=== PATIENT | female | born 1945 | race Caucasian/White ===

== ENCOUNTER 2023-02-24 11:08 | Emergency (ER) | payer MEDICARE, BC ==
[2023-02-24 11:42] LABS: BASOPHILS PERCENT AUTO 0.3 % (0.0-1.0); EOSINOPHILS PERCENT AUTO 0.1 % (0.0-6.0); HEMATOCRIT 33.1 % (37.0-47.0); HEMOGLOBIN 11.2 gm/dl (12.0-16.0); IMMATURE GRAN ABSOLUTE AUTO 0.02 K/mm3 (0.00-0.05); IMMATURE GRAN PERCENT AUTO 0.3 % (0.0-0.4); LYMPHOCYTES ABSOLUTE AUTO 0.9 K/mm3 (1.0-4.8); LYMPHOCYTES PERCENT AUTO 11.2 % (24.0-44.0); MEAN CORPUSCULAR HEMOGLOBIN 31.7 pg (28.0-32.0); MEAN CORPUSCULAR HGB CONC 33.8 g/dl (32.0-36.0); MEAN CORPUSCULAR VOLUME 93.8 fl (83.0-99.0); MEAN PLATELET VOLUME 9.9 fl (9.4-12.3); MONOCYTES ABSOLUTE AUTO 0.7 K/mm3 (0.0-0.8); MONOCYTES PERCENT AUTO 9.4 % (0.0-8.0); NEUTROPHILS ABSOLUTE AUTO 6.1 K/mm3 (1.8-7.7); NEUTROPHILS PERCENT AUTO 78.7 % (41.0-71.0); PLATELET COUNT,PLT 227 K/mm3 (150-400); RED BLOOD CELL COUNT 3.53 M/mm3 (4.10-5.30); WHITE BLOOD CELL COUNT,WBC 7.69 K/mm3 (3.9-11.3)
[2023-02-24 12:12] LABS: INR 3.1; PROTHROMBIN TIME 30.5 SECONDS (9.7-12.0)
[2023-02-24 12:15] LABS: D-DIMER QUANTITATIVE 0.83 mg/L (0.19-0.50)
[2023-02-24 12:18] LABS: A/G RATIO 0.7 (1-2); ALBUMIN 3.1 g/dl (3.4-5.0); ANION GAP 11.5 (5-15); BUN/CREATININE RATIO 12.7 (14-18); CALCIUM 9.2 mg/dL (8.5-10.1); CREATININE 1.1 mg/dL (0.55-1.02); EST CRCL DRUG DOSING (CG) 41.65 mL/min; POTASSIUM,K 3.5 mEq/L (3.5-5.1); PROTEIN TOTAL,TP 7.7 g/dl (6.4-8.2)
[2023-02-24 12:24] LABS: CORONAVIRUS COVID-19 NAA NEGATIVE (NEGATIVE); INFLUENZA A NAA NEGATIVE (NEGATIVE); RESPIRATORY SYNCYTIAL VIR NAA NEGATIVE (NEGATIVE)
[2023-02-24] MEDS ORDERED: Iopamidol 755 Mg/ML 100 ML Bottle IVPUSH ONE ×2 (12:30→12:43)
[2023-02-24] MEDS ORDERED: Sodium Chloride 0.9% 100 ML IV SCH ×2 (12:30→12:45)
[2023-02-24] MEDS ORDERED: Sodium Chloride 0.9% 10 ML Syringe FLUSH ONE (12:43)
[2023-02-24] MEDS: Nitroglycerin 0.4 MG Tab.SL SL PRN ×3 (14:13→14:38)
[2023-02-24] MEDS ORDERED: Alum Hydrox/Mag Hydrox/Simeth 30 ML, Lidocaine 2% 15 ML PO ONE ×2 (16:12)
[2023-02-24] MEDS ORDERED: FLU Vacc QS2022(65UP)/MF59C/PF 60 MCG/0.5 ML Syringe IM ONE (17:00)
[2023-02-24] MEDS ORDERED: Pantoprazole 40 MG Vial IVPUSH ONE (17:31)
[2023-02-24] MEDS ORDERED: FLU (Fluad Quad) 2023-24(65UP)/MF59C/PF 60 MCG/0.5 ML Syringe IM ONE (17:52)
[2023-02-24 18:37] VITALS: BP 118/61; PULSE 72
== END 2023-02-24 18:25 | disposition home or self-care (01) ==
LOC: JD.ED 11:08
DX: K21.9 Gastro-esophageal reflux disease without esophagitis (principal); I10 Essential (primary) hypertension; E78.00 Pure hypercholesterolemia, unspecified; Z86.73 Personal history of transient ischemic attack (TIA), and cerebral infarction without residual deficits; Z95.0 Presence of cardiac pacemaker; Z20.822 Contact with and (suspected) exposure to COVID-19; Z91.040 Latex allergy status; Z88.2 Allergy status to sulfonamides; Z88.8 Allergy status to other drugs, medicaments and biological substances; Z88.1 Allergy status to other antibiotic agents; Z88.5 Allergy status to narcotic agent; Z91.048 Other nonmedicinal substance allergy status
CPT/HCPCS: 0241U; 36415; 71045; 71275; 80053; 83735; 83880; 84484; 85025; 85379; 85610; 90694; 93005; 96374; 99285; A9270; C9113; J3490; Q9967

== ENCOUNTER 2023-04-10 08:29 | Day surgery (SDC) | payer MEDICARE, BC ==
[~2023-04-10 08:29] MED LIST: Sodium Chloride 0.9% 10 ML Syringe FLUSH PRN
[2023-04-10] MEDS: Lactated Ringers 1,000 ML IV SCH (08:35)
[2023-04-10] MEDS ORDERED: Sodium Chloride 0.9% 10 ML Syringe FLUSH SCH (09:00)
[2023-04-10] MEDS ORDERED: Bupivacaine 0.25% 10 ML SDV ONE (09:57)
[2023-04-10] MEDS ORDERED: ceFAZolin 2 GM Vial ONE ×2 (10:10→10:11)
[2023-04-10] MEDS ORDERED: Lidocaine 1% 4 ML ONE (10:11)
[2023-04-10] MEDS ORDERED: Propofol 200 MG/20 ML SDV ONE (10:11)
[2023-04-10] MEDS ORDERED: fentaNYL 100 MCG/2 ML SDV ONE (10:11)
[2023-04-10] MEDS ORDERED: HYDROmorphone 0.5 MG/0.5 ML Syringe IVPUSH PRN (11:24)
[2023-04-10] MEDS ORDERED: Ondansetron 4 MG/2 ML SDV IVPUSH PRN (11:24)
[2023-04-10] MEDS: fentaNYL 100 MCG/2 ML SDV IVPUSH PRN (12:06)
[2023-04-10] MEDS: traMADol 50 MG Tab PO PRN (12:20)
[2023-04-10 13:16] VITALS: PULSE 70
[2023-04-10 14:54] VITALS: BP 134/72
== END 2023-04-10 14:45 | disposition home or self-care (01) ==
LOC: JD.SDS 08:29
PROVIDERS: ATTEND Orthopaedic Surgery
DX: I10 Essential (primary) hypertension (principal)
CPT/HCPCS: 00400; 99100; A9270-GY; J0690; J2704; J3010; J3490; J7120

== ENCOUNTER 2024-08-21 10:46 | Inpatient (IN) | payer MEDICARE, BC ==
[2024-08-21] MEDS ORDERED: Naloxone 0.4 MG/ML SDV IVPUSH PRN (11:31)
[2024-08-21] MEDS: fentaNYL 100 MCG/2 ML SDV IVPUSH ONE (11:42)
[2024-08-21] MEDS: Sodium Chloride 0.9% 1,000 ML IV SCH (11:43)
[2024-08-21 12:21] LABS: BASOPHILS PERCENT AUTO 0.2 % (0.0-1.0); EOSINOPHILS PERCENT AUTO 0.2 % (0.0-6.0); HEMATOCRIT 38.3 % (37.0-47.0); HEMOGLOBIN 12.5 gm/dl (12.0-16.0); IMMATURE GRAN ABSOLUTE AUTO 0.02 K/mm3 (0.00-0.05); IMMATURE GRAN PERCENT AUTO 0.3 % (0.0-0.4); LYMPHOCYTES ABSOLUTE AUTO 0.6 K/mm3 (1.0-4.8); MEAN CORPUSCULAR HEMOGLOBIN 30.9 pg (28.0-32.0); MEAN CORPUSCULAR HGB CONC 32.6 g/dl (32.0-36.0); MEAN CORPUSCULAR VOLUME 94.8 fl (83.0-99.0); MEAN PLATELET VOLUME 10.2 fl (9.4-12.3); MONOCYTES ABSOLUTE AUTO 0.2 K/mm3 (0.0-0.8); MONOCYTES PERCENT AUTO 2.9 % (0.0-8.0); NEUTROPHILS ABSOLUTE AUTO 5.8 K/mm3 (1.8-7.7); NEUTROPHILS PERCENT AUTO 87.4 % (41.0-71.0); PLATELET COUNT,PLT 185 K/mm3 (150-400); RED BLOOD CELL COUNT 4.04 M/mm3 (4.10-5.30); WHITE BLOOD CELL COUNT,WBC 6.57 K/mm3 (3.9-11.3)
[2024-08-21 12:40] LABS: A/G RATIO 0.9 (1-2); ALBUMIN 3.5 g/dl (3.4-5.0); ANION GAP 11.3 (5-15); BILIRUBIN TOTAL 0.9 mg/dL (0.2-1.0); BUN/CREATININE RATIO 22.7 (14-18); CREATININE 1.1 mg/dL (0.55-1.02); EST CRCL DRUG DOSING (CG) 42.52 mL/min; POTASSIUM,K 4.3 mEq/L (3.5-5.1); PROTEIN TOTAL,TP 7.5 g/dl (6.4-8.2)
[2024-08-21 14:11] LABS: APPEARANCE,URINE CLEAR (Clear); BILIRUBIN,URINE NEGATIVE (Negative); COLOR,URINE YELLOW (Yellow); GLUCOSE,URINE NEGATIVE (Negative); KETONES,URINE NEGATIVE (Negative); LEUKOCYTE ESTERASE,URINE NEGATIVE (Negative); NITRITE,URINE NEGATIVE (Negative); OCCULT BLOOD,URINE NEGATIVE (Negative); PROTEIN,URINE NEGATIVE (Negative); UROBILINOGEN,URINE 0.2 (0.2-1.0)
[2024-08-21] MEDS ORDERED: oxyCODONE 5 MG Tab PO PRN (15:03)
[2024-08-21] MEDS ORDERED: Melatonin 3 MG Tab PO PRN ×2 (15:03→21:00)
[2024-08-21] MEDS ORDERED: Ondansetron 4 MG Tab.DIS PO PRN (15:03)
[2024-08-21] MEDS ORDERED: Acetaminophen 325 MG Tab PO PRN (15:03)
[2024-08-21] MEDS ORDERED: Ondansetron 4 MG/2 ML SDV IV PRN (15:03)
[2024-08-21 15:43] LABS: INR 1.76
[2024-08-21] MEDS ORDERED: Cyclobenzaprine 10 MG Tab PO PRN (15:44)
[2024-08-21] MEDS: Warfarin 2.5 MG Tab PO ONE (18:08)
[2024-08-21] MEDS: atorvaSTATin 20 MG Tab PO SCH (18:08)
[2024-08-21] MEDS: Morphine 2 MG/ML SYRINGE IVPUSH PRN (18:12)
[2024-08-21] MEDS: Gabapentin 100 MG Cap PO SCH (20:42)
[2024-08-21] MEDS: Acetaminophen 325 MG Tab PO SCH (20:42)
[2024-08-21] MEDS: Docusate Sodium 100 MG Cap PO PRN (20:45)
[2024-08-22 07:27] LABS: INR 1.97
[2024-08-22] MEDS: Spironolactone 25 MG Tab PO SCH (08:24)
[2024-08-22] MEDS: Aspirin 81 MG Tab.EC PO SCH (08:24)
[2024-08-22] MEDS: Sertraline 50 MG Tab PO SCH (08:24)
[2024-08-22] MEDS: Metoprolol Succinate 50 MG Tab.ER PO SCH (08:25)
[2024-08-22] MEDS: Lisinopril 20 MG Tab PO SCH (08:25)
[2024-08-22] MEDS: Furosemide 40 MG Tab PO SCH (08:25)
[2024-08-22] MEDS ORDERED: Aspirin 81 MG Tab.EC PO SCH (09:00)
[2024-08-22] MEDS ORDERED: CRANBERRY 400 MG PO SCH (09:00)
[2024-08-22] MEDS: Docusate Sodium 100 MG Cap PO SCH (11:52)
[2024-08-22] MEDS: Diclofenac Sodium 1% Gel 100 GM Tube TOP SCH (15:37)
[2024-08-22] MEDS: Warfarin 7.5 MG Tab PO SCH (17:15)
[2024-08-23 07:59] LABS: INR 1.9; PROTHROMBIN TIME 19.3 SECONDS (9.7-12.0)
[2024-08-23] MEDS: Warfarin 5 MG Tab PO SCH (18:49)
[2024-08-24 07:14] LABS: INR 2.03; PROTHROMBIN TIME 20.5 SECONDS (9.7-12.0)
[2024-08-24] MEDS: Warfarin 7.5 MG Tab PO SCH (17:43)
[2024-08-25 07:19] LABS: INR 2.18
[2024-08-25 17:20] VITALS: PULSE 70
[2024-08-25] MEDS: Warfarin 7.5 MG Tab PO SCH (17:34)
[2024-08-26 06:02] LABS: INR 2.21; PROTHROMBIN TIME 22.2 SECONDS (9.7-12.0)
[2024-08-26 10:35] VITALS: BP 139/85
[2024-08-26] MEDS ORDERED: Warfarin 7.5 MG Tab PO SCH (18:00)
== END 2024-08-26 10:43 | DRG 556 ==
LOC: JD.ED 10:46 → JD.MS 15:03
PROVIDERS: ADMIT Family Medicine; ATTEND Internal Medicine
DX: R26.2 Difficulty in walking, not elsewhere classified (principal); I13.0 Hypertensive heart and chronic kidney disease with heart failure and stage 1 through stage 4 chronic kidney disease, or unspecified chronic kidney disease; M25.552 Pain in left hip; H54.7 Unspecified visual loss; I48.91 Unspecified atrial fibrillation; E78.00 Pure hypercholesterolemia, unspecified; F32.A Depression, unspecified; E66.9 Obesity, unspecified; G89.29 Other chronic pain; I25.10 Atherosclerotic heart disease of native coronary artery without angina pectoris; I50.9 Heart failure, unspecified; M54.9 Dorsalgia, unspecified; N18.31 Chronic kidney disease, stage 3a; M19.90 Unspecified osteoarthritis, unspecified site; E11.22 Type 2 diabetes mellitus with diabetic chronic kidney disease; M25.551 Pain in right hip; Z95.0 Presence of cardiac pacemaker; Z86.73 Personal history of transient ischemic attack (TIA), and cerebral infarction without residual deficits; Z68.26 Body mass index [BMI] 26.0-26.9, adult; Z90.49 Acquired absence of other specified parts of digestive tract; Z87.01 Personal history of pneumonia (recurrent); Z88.1 Allergy status to other antibiotic agents; Z88.6 Allergy status to analgesic agent; Z91.040 Latex allergy status; Z88.2 Allergy status to sulfonamides; Z88.8 Allergy status to other drugs, medicaments and biological substances; Z91.013 Allergy to seafood; Z79.82 Long term (current) use of aspirin; Z79.01 Long term (current) use of anticoagulants; Z79.899 Other long term (current) drug therapy; Z79.84 Long term (current) use of oral hypoglycemic drugs
CPT/HCPCS: 36415; 72192; 72192-26; 80053; 81003; 85025; 85610; 96361; 96374; 97110-GP; 97116-GP; 97162-GP; 97530-GP; 99285; 99285-25; A9270-GY; J2270; J3010; J7030